=== PATIENT | male | born 1945 | race American Indian/Alaskan Native ===

== ENCOUNTER 2018-06-02 16:34 | Inpatient (IN) | payer OTHER, MEDICARE ==
[2018-06-02] MEDS ORDERED: Sodium Chloride 0.9% 500 ML IV ONE ×2 (17:17→17:36)
[2018-06-02 17:27] LABS: HEMOGLOBIN 11.8 g/dL (12.0-18.0); MEAN PLATELET VOLUME 9.3 fL (7.2-11.7); RBC 3.55 Mil/uL (4.40-5.90)
[2018-06-02 17:32] LABS: MEAN CELL VOLUME 100.8 fL (80.0-94.0); MEAN CORPUSCULAR HEMOGLOBIN 33.4 pg (27.0-31.0); MEAN CORPUSCULAR HGB CONC 33.1 g/dL (33.0-37.0); RED CELL DISTRIBUTION WIDTH 16.3 % (11.5-14.5); WHITE BLOOD COUNT 21.3 K/uL (4.8-10.8)
[2018-06-02] MEDS ORDERED: Morphine 4 MG/ML VIAL ONE (17:36)
[2018-06-02 17:38] LABS: CALCIUM 8.9 mg/dl (8.6-10.4)
[2018-06-02 17:39] LABS: ALB/GLOB RATIO 0.9 (1.0-2.1); ALBUMIN 4.3 g/dL (3.5-5.0)
[2018-06-02] MEDS ORDERED: Ciprofloxacin 400mg/200ml D5W 400 MG/200 ML BAG IVPB STA (17:42)
[2018-06-02] MEDS ORDERED: cefTRIAXone IV 1 gm in Dextros 50 ML IVPB ONE (17:42)
[2018-06-02 18:09] LABS: MONO # 1.1 K/uL (0.0-0.8); NEUT # 17.2 K/uL (1.8-7.0)
--- NOTE | 2018-06-02 18:28 | RAD ---
Date of service: 06/02/2018 PROCEDURE: CHEST RADIOGRAPH, 1 VIEW HISTORY: abd pain COMPARISON: Comparison is made with 06/02/2015 FINDINGS: LUNGS: Clear. PLEURA: No pneumothorax or pleural fluid seen. CARDIOVASCULAR: No aortic atherosclerotic calcification present. Normal. OSSEOUS STRUCTURES: No significant abnormalities. VISUALIZED UPPER ABDOMEN: Normal. OTHER FINDINGS: None. IMPRESSION: No active disease.
[2018-06-02] MEDS ORDERED: Ciprofloxacin 400mg/200ml D5W 400 MG/200 ML BAG IVPB ONE ×2 (18:36→19:34)
--- NOTE | 2018-06-02 18:37 | C.PDOC ---
History Of Present Illness 72 year old male presents to the ED for evaluation of pain to the scrotum and dysuria for 2 days. The patient feels his testicals are glued together. All week he reports constipation, took laxatives to move his bowels, and has had bowel movements but with strain. Denies fever, chills, nausea, vomiting, headache, and any other associated symptoms. Time Seen by Provider: 06/02/18 17:02 Chief Complaint (Nursing): Male Genitourinary History Per: Patient History/Exam Limitations: no limitations Onset/Duration Of Symptoms: Days (x2) Current Symptoms Are (Timing): Still Present Associated Symptoms: denies: Fever, Chills Recent travel outside of the [place]: No Past Medical History Reviewed: Historical Data, Nursing Documentation, Vital Signs Vital Signs: Last Vital Signs Temp 98 F 06/02/18 16:46 Pulse 105 H 06/02/18 16:46 Resp 18 06/02/18 17:42 BP 124/66 06/02/18 17:42 Pulse Ox 96 06/02/18 17:42 - Medical History PMH: HTN Family History: States: Unknown Family Hx - Social History Hx Alcohol Use: No Hx Substance Use: No Review Of Systems Except As Marked, All Systems Reviewed And Found Negative. Constitutional: Negative for: Fever, Chills Gastrointestinal: Negative for: Nausea, Vomiting Genitourinary: Positive for: Scrotal Pain Neurological: Negative for: Headache Physical Exam - Physical Exam Appears: Non-toxic, Toxic Skin: Warm, Dry Head: Atraumatic, Normacephalic Eye(s): bilateral: Normal Inspection Oral Mucosa: Moist Neck: Normal ROM, Supple Chest: Symmetrical Cardiovascular: Rhythm Regular, No Murmur Respiratory: Normal Breath Sounds, No Rales, No Rhonchi, No Wheezing Gastrointestinal/Abdominal: Bowel Sounds (hyperactive bowel sounds.) Male Genital: Scrotal Swelling ((+) large area of swelling to tender scrotum.), Other ((+) swelling to left inguinal region. (+) full testical.) Neurological/Psych: Oriented x3, Normal Speech, Normal Cognition ED Course And Treatment - Laboratory Results Result Diagrams: 06/02/18 17:23 06/02/18 17:23 Lab Results: Total Bilirubin 3.5 mg/dL (0.2-1.3) H 06/02/18 17:23 AST 116 U/L (17-59) H 06/02/18 17:23 ALT 83 U/L (21-72) H 06/02/18 17:23 Alkaline Phosphatase 193 U/L (38-126) H 06/02/18 17:23 Total Protein 8.9 g/dL (6.3-8.3) H 06/02/18 17:23 Albumin 4.3 g/dL (3.5-5.0) 06/02/18 17:23 Globulin 4.7 gm/dL (2.2-3.9) H 06/02/18 17:23 Albumin/Globulin Ratio 0.9 (1.0-2.1) L 06/02/18 17:23 O2 Sat by Pulse Oximetry: 96 Disposition - Disposition Disposition Time: 18:40 Condition: STABLE Forms: General Discharge Instructions, [facility] (Spanish) - Clinical Impression Clinical Impression: Scrotal pain Physician Patient Turnover Patient Signed Over To: Branden Parker Handoff Comments: 72 y/o male pending scrotal US, r/o hernia vs other pathology
[2018-06-02 19:38] LABS: URINE BILIRUBIN NEGATIVE (NEGATIVE); URINE BLOOD 2+ (NEGATIVE); URINE CLARITY Turbid (Clear); URINE COLOR Amber (YELLOW); URINE GLUCOSE (UA) NORMAL (Normal); URINE LEUKOCYTE ESTERASE 3+ Leu/uL (Negative); URINE PROTEIN 2+ mg/dL (NEGATIVE); URINE UROBILINOGEN NORMAL mg/dL (0.2-1.0); WBC CLUMPS MANY /hpf
[2018-06-02 19:40] LABS: URINE BACTERIA MOD (<OCC)
[2018-06-02] MEDS: Ciprofloxacin 400mg/200ml D5W 400 MG/200 ML BAG IVPB SCH (20:10)
[2018-06-02 20:19] LABS: VENOUS BLOOD GAS BASE EXCESS 7.5 mmol/L (0.0-2.0); VENOUS BLOOD GAS PCO2 47 mmHg (40-60); VENOUS BLOOD GAS PO2 29 mm/Hg (30-55); VENOUS BLOOD PH 7.45 (7.32-7.43)
[2018-06-02] MEDS ORDERED: Sod Polystyrene Sulf 15 gm/60 ml Susp ONE (20:20)
[2018-06-02] MEDS ORDERED: Dextrose 5%/0.45% NS 1,000 ML IV ONE (20:20)
[2018-06-02] MEDS: Dextrose 5%/0.45% NS 1,000 ML IV SCH (20:22)
[2018-06-03 04:55] LABS: HEMOGLOBIN 10.1 g/dL (12.0-18.0); MEAN CELL VOLUME 99.9 fL (80.0-94.0); MEAN CORPUSCULAR HEMOGLOBIN 33.4 pg (27.0-31.0); MEAN CORPUSCULAR HGB CONC 33.4 g/dL (33.0-37.0); MEAN PLATELET VOLUME 8.4 fL (7.2-11.7); RBC 3.03 Mil/uL (4.40-5.90); WHITE BLOOD COUNT 16.6 K/uL (4.8-10.8)
[2018-06-03 05:11] LABS: BLOOD UREA NITROGEN 45 mg/dL (9-20); CALCIUM 8.2 mg/dl (8.6-10.4); GFR NON-AFRICAN AMERICAN 50
[2018-06-03] MEDS: Ciprofloxacin 400mg/200ml D5W 400 MG/200 ML BAG IVPB SCH ×2 (08:25→20:54)
[2018-06-03] MEDS: Enoxaparin 40 mg Syringe SC SCH (11:01)
[2018-06-03] MEDS ORDERED: Dextrose 5%/0.45% NS 1,000 ML IV ONE (12:46)
[2018-06-03] MEDS ORDERED: Potassium Chloride 20 mEq 100 ML ONE ×2 (14:21→16:48)
[2018-06-03] MEDS: Dextrose 5%/0.45% NS 1,000 ML IV SCH (14:36)
--- NOTE | 2018-06-03 15:10 | US ---
Testicular ultrasound HISTORY: Scrotal pain. Comparison: None available. Technique: Real-time sonography was performed through the scrotum. Findings: Right testicle: 5.3 x 1.8 x 3.3 centimeters. Heterogeneous echotexture. Mildly increased flow. Right epididymis measures 2.0 x 1.6 x 2.0 centimeters. Mildly increased flow. Hypoechoic cysts measuring 9 x 9 x 11 and 7 x 7 x 7 millimeters. Left testicle: 5.6 x 2.8 x 3.6 centimeters. Heterogeneous echotexture. Prominently increased flow. Left epididymal head is heterogeneous and prominent measuring 2.9 x 2.7 x 3.2 centimeters demonstrating prominently increased flow. Left epididymal tail measures 1.8 x 1.9 x 2.0 centimeters also heterogeneous in appearance demonstrating prominently increased flow. Multiple left epididymal cysts measuring measures 6 x 6 x 5 millimeters. Impression: Prominently increased flow to the left testes and epididymis concerning for an epididymorchitis. Close clinical correlation and urological consultation recommended. Mildly increased flow in the right testicle and epididymis which may also represent a milder epididymorchitis. Clinical correlation. Bilateral epididymal cysts. A preliminary report was generated at 7:23 p.m. on 06/02/[address] Kam Baker from [employer].
--- NOTE | 2018-06-03 15:14 | US ---
Urinary bladder ultrasound HISTORY: Elevated creatinine. Comparison: None available. Technique: Real-time sonography was performed through the urinary bladder. Findings: Prevoid urinary bladder of 381 cc. Postvoid residual of 221 cc. Bilateral ureteral jets were visualized. No gross wall thickening or calculi. Prominent and heterogeneously enlarged prostate measuring up to 7.9 x 8.1 x 7.5 centimeters. Impression: Please see abdominal ultrasound report for evaluation of the kidneys. Large postvoid residual in the urinary bladder measuring 220 cc. Markedly enlarged and heterogeneous prostate measuring up to 8.1 centimeters. Clinical correlation.
--- NOTE | 2018-06-03 21:03 | CP.PCM.HP ---
Present on Admission - Present on Admission Any Indicators Present on Admission: No Past Patient History - Past Medical History & Family History Past Medical History?: Yes - Past Social History Smoking Status: Never Smoked - CARDIAC Hx Hypertension: Yes - MUSCULOSKELETAL/RHEUMATOLOGICAL Hx Falls: No - GENITOURINARY/GYNECOLOGICAL Hx Prostate Problems: Yes - PSYCHIATRIC Hx Substance Use: No Meds Allergies/Adverse Reactions: Allergies Allergy/AdvReac Type Severity Reaction Status Date / Time No Known Allergies Allergy Unverified 06/02/18 16:48 Results - Vital Signs Recent Vital Signs: Last Vital Signs Temp 98.7 F 06/03/18 10:57 Pulse 86 06/03/18 16:19 Resp 16 06/03/18 16:19 BP 113/59 L 06/03/18 16:19 Pulse Ox 97 06/03/18 16:19 - Labs Result Diagrams: 06/03/18 04:52 06/03/18 04:52 Labs: Laboratory Results - last 24 hr 06/03/18 06/03/18 06/03/18 04:52 04:52 12:23 WBC 16.6 H RBC 3.03 L Hgb 10.1 L Hct 30.3 L MCV 99.9 H MCH 33.4 H MCHC 33.4 RDW 16.0 H Plt Count 301 MPV 8.4 Sodium 141 Potassium 3.1 L Chloride 100 Carbon Dioxide 31 H Anion Gap 14 BUN 45 H Creatinine 1.4 Est GFR ( Amer) > 60 Est GFR (Non-Af Amer) 50 POC Glucose (mg/dL) 180 H Random Glucose 189 H Calcium 8.2 L
[2018-06-04] MEDS: Dextrose 5%/0.45% NS 1,000 ML IV SCH (01:00)
--- NOTE | 2018-06-04 04:55 | HP ---
CHIEF COMPLAINT: Bilateral testicular swelling and pain, more on the left side x1 week. HISTORY OF PRESENT ILLNESS: This is an elderly 72-year-old male with no significant past medical history, and he is an occasional smoker, occasional EtOH user. He is not being followed up for any health condition, in his usual state of health. He is ambulatory and independent in activities of daily living. For about one week, he has been having fever, chills, rigors, dark cloudy urine with testicular swelling, difficulty, feeling irritation in the urinary tract, irritation in the testicular area, generalized weakness, tiredness, anorexia, malaise, and fatigue. He had dysuria. He denies any history of hematuria or polyuria. He denies any smelling, itchy eyes, or itchy nose. There is no history of cough, sore throat, or runny nose. There is no history of trauma, fall, or loss of consciousness. There is no history of seizure-like activity. He denies any tingling, numbness, or paresthesia. PAST MEDICAL HISTORY: Nothing significant. SOCIAL HISTORY: Occasional smoker, occasional EtOH user. FAMILY HISTORY: Noncontributory. PHYSICAL EXAMINATION: GENERAL: An elderly male, in mild to moderate pain in testicular area, with no distress. VITAL SIGNS: Blood pressure 113/59, pulse 86, respiratory rate 16, and temperature 98.7. SKIN: Senile turgor. No bruises. No purpura. No petechiae. HEENT: Atraumatic, normocephalic. Negative pallor. Negative jaundice. Extraocular movements are intact. NECK: Supple. No JVD. No lymph node. No thyromegaly. No carotid bruit. CHEST WALL: Bilateral symmetrical expansion. LUNGS: Clear. No rales. No rhonchi. CARDIOVASCULAR SYSTEM: S1, S2 regular. No heave. No thrill. ABDOMEN: Soft, nontender. Bowel sounds are positive. EXTREMITIES: No clubbing, cyanosis, or edema. CENTRAL NERVOUS SYSTEM: Awake, alert, oriented x3. Cranial nerves II through XII are normal. Power 5/5 x4. Plantars are downgoing. GENITOURINARY: He has testicular swelling and tenderness. ASSESSMENT: 1. . 2. Dehydration. 3. Anemia. PLAN: Admit. Detailed orders are written. Seen and examined. The patient also has obstructive uropathy with enlarged prostate with PSA of 32.4. We will do consult with Urology. Monitor the patient. Jorge Joe MD
[2018-06-04 07:46] LABS: HEMOGLOBIN 10.4 g/dL (12.0-18.0); MEAN CELL VOLUME 100.3 fL (80.0-94.0); MEAN CORPUSCULAR HEMOGLOBIN 33.8 pg (27.0-31.0); MEAN CORPUSCULAR HGB CONC 33.7 g/dL (33.0-37.0); RBC 3.09 Mil/uL (4.40-5.90); RED CELL DISTRIBUTION WIDTH 16.6 % (11.5-14.5)
[2018-06-04 07:57] LABS: BLOOD UREA NITROGEN 30 mg/dL (9-20); CALCIUM 8.1 mg/dl (8.6-10.4); GFR NON-AFRICAN AMERICAN 59
[2018-06-04] MEDS: Enoxaparin 40 mg Syringe SC SCH (11:19)
[2018-06-04] MEDS: Potassium Chloride 20 mEq ER Tab PO ONE ×2 (11:22→13:06)
[2018-06-04] MEDS: Ciprofloxacin 400mg/200ml D5W 400 MG/200 ML BAG IVPB SCH ×2 (12:31→20:48)
[2018-06-04] MEDS ORDERED: Potassium Chloride 20 mEq ER Tab PO ONE (13:00)
--- NOTE | 2018-06-04 16:53 | US ---
HISTORY: transaminitis COMPARISON: Renal/urinary bladder ultrasound performed 06/02/18 TECHNIQUE: Sonographic evaluation of the abdomen. FINDINGS: LIVER: Measures 18.5 cm in sagittal dimension. Echogenic liver may be seen in setting of hepatic parenchymal disease or fatty infiltration. No focal hepatic mass identified. The main portal vein appears patent with normal directional flow. No intrahepatic bile duct dilatation. GALLBLADDER: No gallstones. No gallbladder wall thickening. Negative sonographic Petit's sign as assessed by the soda maker. COMMON BILE DUCT: Measures 4 mm. PANCREAS: Not well visualized. Dilated pancreatic duct measuring approximately 9 mm. RIGHT KIDNEY: Measures 9.6 x 4.5 x 4.8 cm. No obstructing calculus or hydronephrosis identified. LEFT KIDNEY: Measures 12.3 x 5.8 x 5.4 cm. No obstructing calculus or hydronephrosis identified. SPLEEN: Measures approximately 11.7 cm. AORTA: Limited views appear unremarkable. IVC: Limited views appear unremarkable. OTHER FINDINGS: None. IMPRESSION: Echogenic liver may be seen in setting of hepatic parenchymal disease or fatty infiltration. Diminutive right kidney. Dilated proximal right ureter. Correlate clinically. Suggest further evaluation with cross-sectional imaging The pancreas is not adequately visualized on this examination. Limited visualization of the pancreatic duct measures approximately 9 mm. Recommend further evaluation with cross-sectional imaging if clinically indicated. Preliminary impression was provided by Seesaw Chandan.
--- NOTE | 2018-06-04 20:05 | CARD ---
APPROVED REPORT Date of service: 06/02/2018 EKG Measurement Heart [id number] <Conclusion> Normal sinus rhythm Left anterior fascicular block Abnormal ECG
--- NOTE | 2018-06-04 20:37 | CP.PCM.PN ---
Subjective - Date & Time of Evaluation Date of Evaluation: 06/04/18 Time of Evaluation: 08:20 - Subjective Subjective: dictated Objective - Vital Signs/Intake and Output Vital Signs (last 24 hours): Temp Pulse Resp BP Pulse Ox 98.6 F 77 20 116/69 95 06/04/18 15:20 06/04/18 15:20 06/04/18 15:20 06/04/18 15:20 06/04/18 15:20 Intake and Output: 06/04/18 06/05/18 18:59 06:59 Output Total 500 Balance -500 - Medications Medications: Current Medications Acetaminophen (Tylenol 325mg Tab) 650 mg PO Q6 PRN PRN Reason: Fever >100.4 F Last Admin: 06/04/18 03:55 Dose: 650 mg Enoxaparin Sodium (Lovenox) 40 mg SC DAILY [facility] Last Admin: 06/04/18 11:19 Dose: 40 mg Ciprofloxacin (Cipro 400mg/200ml Dsw) 400 mg in 200 mls @ 133 mls/hr IVPB Q12H [facility]; Protocol Last Admin: 06/04/18 12:31 Dose: 133 mls/hr Dextrose/Sodium Chloride (Dextrose 5%/0.45% Ns 1000 Ml) 1,000 mls @ 70 mls/hr IV .[id number] [facility] Last Admin: 06/04/18 01:00 Dose: Not Given - Labs Labs: 06/04/18 07:32 06/04/18 07:32
--- NOTE | 2018-06-05 01:43 | PN ---
DATE: 06/04/2018 SUBJECTIVE: The patient still has testicular pain. No fever. No chills. His WBC is steadily going down. His urine culture is positive for E. coli which is tan-sensitive. No nausea or vomiting. His prostate specific antigen is elevated, waiting for Urology evaluation. PHYSICAL EXAMINATION: VITAL SIGNS: Blood pressure is 116/69, pulse 77, respiratory rate 20, temperature 98.6. LUNGS: Clear. CARDIOVASCULAR SYSTEM: S1, S2, regular. ABDOMEN: Soft. GENITOURINARY: Positive bilateral testicular swelling. ASSESSMENT: 1. Epididymoorchitis. 2. Hypokalemia. 3. New onset borderline diabetes. PLAN: Admit. Detailed orders are written. Antibiotics. See urine cultures. Urology evaluation. Jorge Joe MD
[2018-06-05] MEDS: Dextrose 5%/0.45% NS 1,000 ML IV SCH (04:50)
--- NOTE | 2018-06-05 07:33 | CP.PCM.CON ---
History of Present Illness - History of Present Illness History of Present Illness: UROLOGY CONSULTATION FULL NOTE TBD Past Patient History - Past Medical History & Family History Past Medical History?: Yes - Past Social History Smoking Status: Never Smoked - CARDIAC Hx Hypertension: Yes - MUSCULOSKELETAL/RHEUMATOLOGICAL Hx Falls: No - GENITOURINARY/GYNECOLOGICAL Hx Prostate Problems: Yes - PSYCHIATRIC Hx Substance Use: No Meds Allergies/Adverse Reactions: Allergies Allergy/AdvReac Type Severity Reaction Status Date / Time No Known Allergies Allergy Unverified 06/02/18 16:48 - Medications Medications: Current Medications Acetaminophen (Tylenol 325mg Tab) 650 mg PO Q6 PRN PRN Reason: Fever >100.4 F Last Admin: 06/04/18 03:55 Dose: 650 mg Enoxaparin Sodium (Lovenox) 40 mg SC DAILY [facility] Last Admin: 06/04/18 11:19 Dose: 40 mg Ciprofloxacin (Cipro 400mg/200ml Dsw) 400 mg in 200 mls @ 133 mls/hr IVPB Q12H [facility]; Protocol Last Admin: 06/04/18 20:48 Dose: 133 mls/hr Dextrose/Sodium Chloride (Dextrose 5%/0.45% Ns 1000 Ml) 1,000 mls @ 70 mls/hr IV .[id number] [facility] Last Admin: 06/05/18 04:50 Dose: 70 mls/hr Results - Vital Signs Recent Vital Signs: Last Vital Signs Temp 98.4 F 06/04/18 23:50 Pulse 70 06/04/18 23:50 Resp 20 06/04/18 23:50 BP 108/65 06/04/18 23:50 Pulse Ox 95 06/04/18 23:50 - Labs Result Diagrams: 06/04/18 07:32 06/04/18 07:32 Labs: Laboratory Results - last 24 hr 06/04/18 06/04/18 06/04/18 07:32 07:32 07:32 WBC 14.0 H RBC 3.09 L Hgb 10.4 L Hct 31.0 L MCV 100.3 H MCH 33.8 H MCHC 33.7 RDW 16.6 H Plt Count 366 MPV 9.0 Sodium 139 Potassium 3.3 L Chloride 101 Carbon Dioxide 33 H Anion Gap 8 L BUN 30 H Creatinine 1.2 Est GFR ( Amer) > 60 Est GFR (Non-Af Amer) 59 Random Glucose 172 H Hemoglobin A1c 7.6 H Calcium 8.1 L Assessment & Plan - Assessment and Plan (Free Text) Assessment: IMP: L epididymo-orchitis Hx of BPH Voiding dysfunction UTI Hx of DM, hypertension Full note tbd Thank you. YS - Date & Time Date: 06/04/18 Time: 12:20
[2018-06-05 08:01] VITALS: BP 122/77; RESP 18; TEMP 98.2; O2SAT 99
[2018-06-05 08:46] VITALS: PULSE 55
[2018-06-05] MEDS: Ciprofloxacin 400mg/200ml D5W 400 MG/200 ML BAG IVPB SCH (09:19)
--- NOTE | 2018-06-05 11:04 | CON ---
DATE: 06/04/2018 REQUESTING PHYSICIAN: Jorge Joe MD CONSULTING PHYSICIAN: Alexandria Alcala MD REASON FOR CONSULTATION: Left scrotal pain. HISTORY OF PRESENT ILLNESS: The patient is a 72-year-old male with left scrotal pain and enlargement. The patient reports several-day history of pain and swelling of the left scrotum. He presented to the emergency room. He was found to have epididymitis. The patient was admitted for evaluation and therapy. The patient is in otherwise good health. The patient reports to me he has history of hypertension and diabetes, although I do not see this documented in the chart. The patient voids with fair to slow urinary stream. The patient also reports straining to void. Last week, the patient had burning with urination as well. The patient reports progressive pain and swelling of the left scrotum. The patient was sent to the emergency room on 06/02/2018. He was admitted for further evaluation and therapy. The patient reports no fever. No hematuria. The patient has no history of urolithiasis. The patient has history of enlarged prostate. He reports that he was evaluated at [facility] for his prostate disease. The patient also reports that he had previous prostate biopsy. There is no history of prostate cancer. The patient reports no family history of prostate cancer. The patient has nocturia two to three times per night. He has some daytime frequency as well. Mr. Pinto reports that the dysuria has resolved thus far during hospitalization. The patient has been on antibiotic therapy. He reports that he is having less pain. The patient reports no chest pain. The patient reports good appetite. No shortness of breath. The patient lives alone. He is employed. The patient has children, grandchildren as well as great-grandchildren. PHYSICAL EXAMINATION: GENERAL: The patient is a well-developed, well-nourished elderly male. The patient is awake and alert VITAL SIGNS: The patient is afebrile. Vital signs stable. See attached. ABDOMEN: Soft, nondistended. There is mild suprapubic tenderness. BACK: No CVA tenderness. No mass or organomegaly. GENITALIA: Normal male. Scrotal contents demonstrated a normal right testicle. The left scrotal contents are markedly enlarged. Approximately 8 cm in greatest diameter. The testicle is diffusely firm. There is loss of distinction between the testicle and the epididymis due to the inflammation and infection. The scrotal skin is normal. There is no fluctuance noted. RECTAL: Normal sphincter tone. Prostate is enlarged. Prostate is approximately 40 to 50 g in size. Prostate is smooth and firm and symmetric without induration or nodularity. LABORATORY DATA: Reviewed as well. Marked leukocytosis is noted. Azotemia is noted. BUN 49, creatinine 1.5. White blood count 21,000. Urinalysis demonstrates active urinary sediment including pyuria. IMPRESSION: 1. Left epididymal orchitis. 2. Benign prostatic hypertrophy. 3. Urinary tract infection. 4. Azotemia. RECOMMENDATIONS AND PLAN: Scrotal elevation. Antibiotic therapy. Urine culture. Monitor chemistry and CBC. Renal ultrasound. Bladder ultrasound. Add Flomax. Serum PSA. Further therapy to follow according to the patient's clinical course as well as results of above. Thank you for recommending the patient to Urology consultation. [facility] MD Fredrick cc: Jorge Joe MD
[2018-06-05] MEDS: Enoxaparin 40 mg Syringe SC SCH (11:09)
[2018-06-05] MEDS ORDERED: Potassium Chloride 20 mEq/15 ml LIQ UD PO ONE (12:00)
--- NOTE | 2018-06-05 12:43 | CP.PCM.PN ---
Subjective - Date & Time of Evaluation Date of Evaluation: 06/05/18 Time of Evaluation: 12:43 Objective - Vital Signs/Intake and Output Vital Signs (last 24 hours): Temp Pulse Resp BP Pulse Ox 98.2 F 55 L 18 122/77 99 06/05/18 07:00 06/05/18 07:00 06/05/18 07:00 06/05/18 07:00 06/05/18 07:00 Intake and Output: 06/05/18 06/05/18 06:59 18:59 Intake Total 1190 Output Total 700 Balance 490 - Medications Medications: Current Medications Acetaminophen (Tylenol 325mg Tab) 650 mg PO Q6 PRN PRN Reason: Fever >100.4 F Last Admin: 06/04/18 03:55 Dose: 650 mg Enoxaparin Sodium (Lovenox) 40 mg SC DAILY [facility] Last Admin: 06/05/18 11:09 Dose: 40 mg Finasteride (Proscar) 5 mg PO DAILY [facility] Last Admin: 06/05/18 12:35 Dose: 5 mg Ciprofloxacin (Cipro 400mg/200ml Dsw) 400 mg in 200 mls @ 133 mls/hr IVPB Q12H [facility]; Protocol Last Admin: 06/05/18 09:19 Dose: 133 mls/hr Tamsulosin HCl (Flomax) 0.4 mg PO DAILY [facility] Last Admin: 06/05/18 11:09 Dose: 0.4 mg - Labs Labs: 06/04/18 07:32 06/04/18 07:32 Assessment and Plan - Assessment and Plan (Free Text) Assessment: FOLLOW UP WITH DR EDUARDO IN HIS OFFICE -----CALL FOR APPOINTMENT FOLLOW UP WITH DR STERN IN HIS OFFICE -----CALL FOR APPOITNEMT CONTINUE HOME MEDICATION NEW PRESCRIPTION GIVEN PROSCAR 5 MG PO DAILY FLOMAX 0.4 MG PO DAILY CIPRO 500 MG PO Q12H FOR 10 DAYS FLORASTOR 250 MG PO BID FOR [address] EDUARDO OR GO TO THE EMERGENCY ROOM IF SYMPTOM RETURN OR WORSENING
[2018-06-05 13:03] LABS: URINE BILIRUBIN NEGATIVE (NEGATIVE); URINE BLOOD 2+ (NEGATIVE); URINE CLARITY Clear (Clear); URINE COLOR Yellow (YELLOW); URINE GLUCOSE (UA) NORMAL (Normal); URINE LEUKOCYTE ESTERASE 1+ Leu/uL (Negative); URINE PROTEIN NEGATIVE (NEGATIVE); URINE UROBILINOGEN NORMAL mg/dL (0.2-1.0)
--- NOTE | 2018-06-05 21:19 | CP.PCM.DIS ---
Provider - Provider Date of Admission: 06/02/18 19:40 Attending physician: Jorge Joe MD Consults: 06/02/18 19:42 Urology Consult Routine Comment: Consulting Provider: Alexandria Alcala Consulting Physician: Alexandria Alcala Reason for Consult: epididomorcihitis 06/02/18 20:01 Urology Consult Routine Comment: Consulting Provider: Alexandria Alcala Consulting Physician: Alexandria Alcala Reason for Consult: epididimitis Time Spent in preparation of Discharge (in minutes): 30 Hospital Course - Lab Results Lab Results: Micro Results 06/02/18 19:17 Urine Random Urine Culture - Final Escherichia Coli Most Recent Lab Values WBC 14.0 K/uL (4.8-10.8) H 06/04/18 07:32 RBC 3.09 Mil/uL (4.40-5.90) L 06/04/18 07:32 Hgb 10.4 g/dL (12.0-18.0) L 06/04/18 07:32 Hct 31.0 % (35.0-51.0) L 06/04/18 07:32 MCV 100.3 fL (80.0-94.0) H 06/04/18 07:32 MCH 33.8 pg (27.0-31.0) H 06/04/18 07:32 MCHC 33.7 g/dL (33.0-37.0) 06/04/18 07:32 RDW 16.6 % (11.5-14.5) H 06/04/18 07:32 Plt Count 366 K/uL (130-400) 06/04/18 07:32 MPV 9.0 fL (7.2-11.7) 06/04/18 07:32 Neut % (Auto) 81.0 % (50.0-75.0) H 06/02/18 17:23 Lymph % (Auto) 14.0 % (20.0-40.0) L 06/02/18 17:23 [place] % (Auto) 5.0 % (0.0-10.0) 06/02/18 17:23 Eos % (Auto) 0.0 % (0.0-4.0) 06/02/18 17:23 Baso % (Auto) 0.0 % (0.0-2.0) 06/02/18 17:23 Neut # (Auto) 17.2 K/uL (1.8-7.0) H 06/02/18 17:23 Lymph # (Auto) 3.0 K/uL (1.0-4.3) 06/02/18 17:23 [place] # (Auto) 1.1 K/uL (0.0-0.8) H 06/02/18 17:23 Eos # (Auto) 0.0 K/uL (0.0-0.7) 06/02/18 17:23 Baso # (Auto) 0.0 K/uL (0.0-0.2) 06/02/18 17:23 pO2 29 mm/Hg (30-55) L 06/02/18 20:15 VBG pH 7.45 (7.32-7.43) H 06/02/18 20:15 VBG pCO2 47 mmHg (40-60) 06/02/18 20:15 VBG HCO3 29.7 mmol/L 06/02/18 20:15 VBG Total CO2 34.1 mmol/L (22-28) H 06/02/18 20:15 VBG O2 Sat (Calc) 49.0 % (40-65) 06/02/18 20:15 VBG Base Excess 7.5 mmol/L (0.0-2.0) H 06/02/18 20:15 VBG Potassium 3.2 mmol/L (3.6-5.2) L 06/02/18 20:15 Sodium 143.0 mmol/l (132-148) 06/02/18 20:15 Chloride 104.0 mmol/L (98-107) 06/02/18 20:15 Glucose 179 mg/dl (75-110) H 06/02/18 20:15 Lactate 1.8 mmol/L (0.7-2.1) 06/02/18 20:15 Sodium 139 mmol/L (132-148) 06/04/18 07:32 Potassium 3.3 mmol/L (3.6-5.2) L 06/04/18 07:32 Chloride 101 mmol/L (98-107) 06/04/18 07:32 Carbon Dioxide 33 mmol/L (22-30) H 06/04/18 07:32 Anion Gap 8 (10-20) L 06/04/18 07:32 BUN 30 mg/dL (9-20) H 06/04/18 07:32 Creatinine 1.2 mg/dL (0.8-1.5) 06/04/18 07:32 Est GFR ( Amer) > 60 06/04/18 07:32 Est GFR (Non-Af Amer) 59 06/04/18 07:32 POC Glucose (mg/dL) 180 mg/dL (65-110) H 06/03/18 12:23 Random Glucose 172 mg/dL (75-110) H 06/04/18 07:32 Hemoglobin A1c 7.6 % (4.2-6.5) H 06/04/18 07:32 Calcium 8.1 mg/dl (8.6-10.4) L 06/04/18 07:32 Total Bilirubin 3.5 mg/dL (0.2-1.3) H 06/02/18 17:23 AST 116 U/L (17-59) H 06/02/18 17:23 ALT 83 U/L (21-72) H 06/02/18 17:23 Alkaline Phosphatase 193 U/L (38-126) H 06/02/18 17:23 Total Protein 8.9 g/dL (6.3-8.3) H 06/02/18 17:23 Albumin 4.3 g/dL (3.5-5.0) 06/02/18 17:23 Globulin 4.7 gm/dL (2.2-3.9) H 06/02/18 17:23 Albumin/Globulin Ratio 0.9 (1.0-2.1) L 06/02/18 17:23 Prostate Specific Ag 32.4 ng/mL (0.00-4.0) H 06/02/18 19:51 Venous Blood Potassium 3.2 mmol/L (3.6-5.2) L 06/02/18 20:15 Urine Color Yellow (YELLOW) 06/05/18 12:46 Urine Clarity Clear (Clear) 06/05/18 12:46 Urine pH 7.0 (5.0-8.0) 06/05/18 12:46 Ur Specific [place] 1.012 (1.003-1.030) 06/05/18 12:46 Urine Protein Negative mg/dL (NEGATIVE) 06/05/18 12:46 Urine Glucose (UA) Normal mg/dL (Normal) 06/05/18 12:46 Urine Ketones Negative mg/dL (NEGATIVE) 06/05/18 12:46 Urine Blood 2+ (NEGATIVE) H 06/05/18 12:46 Urine Nitrate Negative (NEGATIVE) 06/05/18 12:46 Urine Bilirubin Negative (NEGATIVE) 06/05/18 12:46 Urine Urobilinogen Normal mg/dL (0.2-1.0) 06/05/18 12:46 Ur Leukocyte Esterase 1+ [place]/uL (Negative) H 06/05/18 12:46 Urine WBC (Auto) 11 /hpf (0-5) H 06/05/18 12:46 Urine RBC (Auto) 18 /hpf (0-3) H 06/05/18 12:46 Urine WBC Clumps (Auto) Many /hpf (NONE) H 06/02/18 19:17 Urine Bacteria Mod (<OCC) H 06/02/18 19:17 Discharge Plan - Discharge Medications Prescriptions: Ciprofloxacin [Cipro] 500 mg PO Q12H 10 Days tab Tamsulosin [Flomax] 0.4 mg PO DAILY 30 Days cap Saccharomyces Boulardii [Florastor] 250 mg PO BID 10 Days capsule Finasteride [Proscar] 5 mg PO DAILY 30 Days tab - Follow Up Plan Condition: STABLE Disposition: HOME/ ROUTINE Instructions: Ciprofloxacin (Systemic), Saccharomyces boulardii, Epididymitis (DC), Finasteride, Tamsulosin Additional Instructions: FOLLOW UP WITH DR JOE IN HIS OFFICE -----CALL FOR APPOINTMENT FOLLOW UP WITH DR ALCALA IN HIS OFFICE -----CALL FOR APPOITNEMT CONTINUE HOME MEDICATION NEW PRESCRIPTION GIVEN PROSCAR 5 MG PO DAILY FLOMAX 0.4 MG PO DAILY CIPRO 500 MG PO Q12H FOR 10 DAYS FLORASTOR 250 MG PO BID FOR 10 DA[address] ACTIVITY TOLERATED CALL DR JOE OR GO TO THE EMERGENCY ROOM IF SYMPTOM RETURN OR WORSENING Referrals: Jorge Joe MD [Staff Provider] - 06/13/18 1:00 pm Alexandria Alcala MD [Staff Provider] -
--- NOTE | 2018-06-06 07:36 | DS ---
DISCHARGE DIAGNOSIS: Acute epididymo-orchitis. HISTORY OF PRESENT ILLNESS: This is a 72-year-old -[place] male with history of bilateral testicular pain with swelling. He was admitted. He was found to have epididymo-orchitis and he was given antibiotics. His condition improved. He was found to have high PSA. The patient is being discharged home with outpatient followup with me and Urology and he may need Proscar, Flomax and he will be followed up as outpatient. PHYSICAL EXAMINATION: VITAL SIGNS: Blood pressure 122/77, pulse 57, respiratory rate 18, temperature 98.2. LUNGS: Clear. CARDIOVASCULAR SYSTEM: S1, S2, regular. ABDOMEN: Soft. ASSESSMENT: 1. Epididymo-orchitis. 2. Obstructive uropathy with benign prostatic hyperplasia. PLAN: Discharge the patient home. The patient will follow up me. Jorge Joe MD
[2018-06-06 16:06] LABS: TOTAL PSA 31.4 ng/mL (< or = 4.0)
== END 2018-06-05 17:37 | disposition home or self-care (01) | DRG 728 ==
LOC: C.ER 16:34 → C.9E 19:40 → C.6T 06-03 17:09
PROVIDERS: ADMIT Internal Medicine; ATTEND Internal Medicine
DX: N45.3 Epididymo-orchitis (principal); N13.8 Other obstructive and reflux uropathy; N39.0 Urinary tract infection, site not specified; E86.0 Dehydration; E87.6 Hypokalemia; F17.200 Nicotine dependence, unspecified, uncomplicated; I10 Essential (primary) hypertension; K59.00 Constipation, unspecified; N40.1 Benign prostatic hyperplasia with lower urinary tract symptoms; Z79.899 Other long term (current) drug therapy; D64.9 Anemia, unspecified; E11.9 Type 2 diabetes mellitus without complications